=== PATIENT | female | born 1965 | race Caucasian/White ===

== ENCOUNTER 2022-08-24 12:42 | Outpatient (CLI) | payer SELFPAY ==
--- NOTE | 2022-08-24 13:00 | CRLHL7_ITS ---
For Patients: As a result of the Century Cures Act, medical imaging exams and procedure reports are released immediately into your electronic medical record. You may view this report before your referring provider. If you have questions, please contact your health care provider. INDICATION: 56 year-old female. Pelvic pain left greater than right. TECHNIQUE: Transvaginal pelvic ultrasound. The patient was not prepared for a transabdominal ultrasound. COMPARISON: None. FINDINGS: Heterogeneous myometrium diffusely. Diffuse fibroids are suspect. There is however only a single discrete measurable intramural fibroid at the uterine fundus measuring 2.7 x 3.7 x 2.9 cm. The endometrial stripe is somewhat heterogeneous measuring up to 7.4 mm. The right ovary measures 3.3 x 2.7 x 2.0 cm. The left ovary measures 3.2 x 2.3 x 2.3 cm. Blood flow is documented in the ovaries. Small collapsing presumed physiologic cyst left ovary measuring 1.6 x 2.5 x 1.3 cm. No free pelvic fluid. IMPRESSION: 1. Normal-sized ovaries. 2.5 cm left ovarian cyst. 2. Probable diffuse myomatous change within the uterus. Discrete 3.7 cm intramural fundal fibroid. 3. Indistinct somewhat heterogeneous endometrial stripe measuring 7.4 mm. Dictated by Khoa Sykes MD @ 08/24/2022 3:41:16 PM (Electronically Signed)
== END 2022-08-24 12:43 | disposition home or self-care (01) ==
LOC: US 12:42
PROVIDERS: PCP Family Medicine; Visit Provider Obstetrics & Gynecology
DX: R10.2 Pelvic and perineal pain (principal); D25.1 Intramural leiomyoma of uterus; R93.89 Abnormal findings on diagnostic imaging of other specified body structures
CPT/HCPCS: 76830

== ENCOUNTER 2022-08-26 15:55 | Outpatient (CLI) | payer OTHER, SELFPAY ==
[2022-08-27 01:02] LABS: C Reactive Protein* 1.1 mg/dL (0.5-1.0)
== END 2022-08-26 15:56 | disposition home or self-care (01) ==
LOC: LKVREF 16:10
PROVIDERS: PCP Family Medicine; Visit Provider Registered Nurse
DX: R10.9 Unspecified abdominal pain (principal)
CPT/HCPCS: 86140

== ENCOUNTER 2023-08-10 08:15 | Outpatient (RCR) | payer OTHER, SELFPAY | END 2023-12-08 23:59 | disposition home or self-care (01) | PROVIDERS: PCP Family Medicine; Visit Provider Family Medicine | DX: I89.0 Lymphedema, not elsewhere classified (principal); G56.31 Lesion of radial nerve, right upper limb; Z51.89 Encounter for other specified aftercare | CPT/HCPCS: 97140; 97166; 97535 ==